=== PATIENT | female | born 1940 | race Caucasian/White ===

== ENCOUNTER → 2022-01-21 09:14 | Outpatient (CLI) | payer MEDICARE, OTHER, SELFPAY ==
--- NOTE | 2022-01-21 | DI.MG.S_ITS ---
BILATERAL DIGITAL DIAGNOSTIC MAMMOGRAM 3D/2D: 01/21/2022 CLINICAL: Mastodynia. Comparison is made to exams dated: 02/12/2021 mammogram, 12/21/2019 mammogram, and 08/04/2018 mammogram - [facility]. The tissue of both breasts is predominantly fatty. No significant masses, calcifications, or other findings are seen in either breast. Specifically, no finding to explain the patient's left breast discomfort. Mammograms are otherwise stable. IMPRESSION: NEGATIVE There is no abnormality seen in the left breast to correspond with the pain at 3 o'clock. There is no mammographic evidence of malignancy. Return to annual mammogram screening schedule is recommended. Findings and recommendations were conveyed to the patient at time of exam. This exam was interpreted at Station ID: [id number]. NOTE: For mammograms, a report in lay terms will be sent to the patient. Approximately 15% of breast malignancies will not be visualized mammographically. In the management of a palpable breast mass, a negative mammogram must not discourage biopsy of a clinically suspicious lesion. Electronically Signed By: Robina terry/:01/21/2022 09:55:56 letter sent: Normal Exam ACR BI-RADS Category 1: Negative [id number]
== END ==
PROVIDERS: PCP Family Medicine; Referring Provider Family Medicine; Visit Provider Family Medicine
DX: N64.4 Mastodynia (principal)
CPT/HCPCS: 77066; G0279

== ENCOUNTER → 2024-08-09 11:49 | Outpatient (CLI) | payer MEDICARE, OTHER, SELFPAY ==
[2024-08-09 14:46] LABS: Clostridium Difficile Tox PCR Negative for C. diff (Negative)
[2024-08-13 00:06] LABS: Calprotectin, Stool 106 ug/g (0-120)
== END ==
PROVIDERS: PCP Family Medicine; Referring Provider Internal Medicine Gastroenterology; Visit Provider Internal Medicine Gastroenterology
DX: R19.7 Diarrhea, unspecified (principal)
CPT/HCPCS: 83993; 87045; 87177; 87329; 87493

== ENCOUNTER 2024-09-04 07:17 | Day surgery (SDC) | payer MEDICARE, OTHER, SELFPAY ==
--- NOTE | 2024-09-04 | PATH_ITS ---
[facility] Accession Number: [id number] No. of containers..03 Tissue . 01 Material submitted: . PART A: colon - RANDOM COLON PART B: colon - ASCENDING POLYP X 2 PART C: colon - DESCENDING POLYP . 01 Diagnosis: A. RANDOM COLON, BIOPSY: Colonic mucosa with no diagnostic abnormality. Negative for active, chronic, and microscopic colitis. Negative for dysplasia and malignancy. . B. ASCENDING COLON, POLYP X2: Tubular adenomas. . C. DESCENDING COLON, POLYP: Tubular adenoma. [facility] 09/06/2024 1508 Local . 01 Electronically signed: . Loren Clark MD, Pathologist NPI- [id number] . 01 Gross description: . Part A: RANDOM COLON: Received in formalin are 2 fragment(s) of hatch, soft tissue measuring 0.2 x 0.1 x 0.1 cm to 0.4 x 0.2 x 0.2 cm submitted entirely in 1 cassette(s) Part B: ASCENDING POLYP X 2: Received in formalin are 2 fragment(s) of hatch, soft tissue measuring 0.2 x 0.2 x 0.2 cm to 0.3 x 0.3 x 0.2 cm submitted entirely in 1 cassette(s) Part C: DESCENDING POLYP : Received in formalin is 1 fragment(s) of hatch, soft tissue measuring 0.3 x 0.3 x 0.2 cm submitted entirely in 1 cassette(s) /[facility]GA 09/05/2024 0132 Local . 01 Pathologist provided ICD-10: D12.2 . 01 CPT . 909912, 221149, 359385 Specimen Comment: A courtesy copy of this report has been sent to [phone] Performed at: [address] [place] [address] [address], [place], [place] [id number] MD Jude Shea MD Phone: [phone]
[2024-09-04 07:41] VITALS: BP 158/84; PULSE 98; RESP 16; TEMP 36.7; O2SAT 99
--- NOTE | 2024-09-04 07:55 | PM.HP.1 ---
History of Present Illness History of Present Illness Date Patient Seen: 09/04/24 Time Patient Seen: 07:55 [place] [facility] [place]arrative: 84-year-old here for colonoscopy. Diarrhea persists in the workup thus far is negative. I reviewed my office note no other additional changes. She is off her Eliquis since last Wednesday 3 days ago. [facility] Medical History Diarrhea Liver cyst GERD (gastroesophageal reflux disease) Social History Smoking Status: Never smoker alcohol intake: current Meds Home Medications and Allergies Home Medications Medication Instructions Recorded Confirmed Type apixaban 5 mg tablet (Eliquis) 5 mg PO BID 09/04/24 09/04/24 History metoprolol succinate 25 mg 25 mg PO DAILY 09/04/24 09/04/24 History tablet,extended release 24 hr omeprazole 40 mg capsule,delayed 40 mg PO DAILY 09/04/24 09/04/24 History release prednisone 5 mg tablet 5 - 10 mg PO QAM 09/04/24 09/04/24 History simvastatin 20 mg tablet 20 mg PO ONCE PM 09/04/24 09/04/24 History Allergies Allergy/AdvReac Type Severity Reaction Status Date / Time epinephrine AdvReac rapid Verified 09/04/24 07:35 heart beat Review of Systems Review of Systems ROS: Yes All systems reviewed with the patient and are negative except as otherwise documented Exam Vital Signs (past 8 hours): - 09/04/24 07:41 Temperature 98.0 F Pulse Rate 98 H Respiratory Rate 16 Blood Pressure 158/84 H Pulse Oximetry 99 Oxygen Delivery Method Room Air Oxygen Delivery Method Room Air Const General: cooperative HENMT Head: normal to inspection Eyes General: appearance normal, both eyes and all related structures Neck Neck: normal visual inspection Chest Chest: normal inspection of the chest Resp Effort & Inspection: normal respiratory effort Cardio Rate: regular rate GI Inspection: normal to inspection Skin General: no rashes or lesions noted Neuro General: patient alert and patient awake Extrem General: normal to inspection and no pedal edema Psych Appearance: grossly normal Assessment & Plan Assessment & Plan narrative: 84-year-old female with diarrhea. Colonoscopy is pursued today. Time-Based Coding :: [TOTAL MINUTES] spent with patient and on the chart (including review of chart, obtaining history, exam, reviewing outside data, placing orders, documenting exam and treatment plan, and counseling patient) on [DATE].
--- NOTE | 2024-09-04 07:56 | PM.PREOP ---
Pre-operative Note Interval Note History & Physical reviewed/Exam performed by Physician: Yes Changes to H&P: No ASA Class (for procedural sedation): III
--- NOTE | 2024-09-04 08:56 | P.OP.COLON_ITS ---
Operative Date/Time/Diagnoses Date of procedure: 09/04/24 Time of procedure: 08:57 Pre-op diagnosis: Diarrhea and incidental history of colon polyps Post-op diagnosis: same Procedure & Clinicians Study performed: Colonoscopy with cold forceps polypectomy, hot snare polypectomy, and random biopsies Same procedure as scheduled: Yes Indications: Diarrhea and incidental history of colon polyps Surgeon: Richy Hurtado Procedure Notes SCOAP/Timeout: Done Procedure in detail: After the risks and benefits were explained, written and verbal informed consent was obtained. The patient was brought into the procedure room and placed into the left lateral decubitus position. Please see anesthesia notes for sedation details. Digital rectal examination was accomplished. The scope was introduced into the patient and advanced under direct visualization to the cecum as identified by the appendiceal orifice and ileocecal valve. The scope was slowly withdrawn to carefully examine the mucosa for any defects or lesions. Co mprehensive imaging was accomplished throughout the rectum including the dentate line. The colon was decompressed, the scope was then removed from the patient who tolerated the procedure well. Pediatric colonoscope Bowel prep adequate Scope withdrawal time: 18 minutes Sedation minutes: 22 Complications: none Impression: The patient had grade 2 internal hemorrhoids on digital and endoscopic examination. There was moderate diverticulosis all throughout the sigmoid. In the ascending colon there were 2 diminutive polyps removed with cold forceps and 1 8 mm pedunculated polyp removed with hot snare. In the descending colon there was a diminutive 2-3 mm polyp removed with cold forceps. No additional significant mucosal pathology was appreciated throughout. Random colon biopsies were taken to exclude microscopic colitis. The terminal ileum was interrogated and appeared visually normal. Endoscopic diagnosis 1. Colon polyps 2. Diverticulosis 3. Grade 2 hemorrhoids Post-procedure Plan for aftercare: 1. Await histology 2. Okay to resume Eliquis starting tomorrow 3. Titrate [id number] fiber to the desired stool consistency and frequency. Disposition: PACU
[2024-09-04 09:00] VITALS: BP 101/65; PULSE 80; RESP 24; TEMP 36; O2SAT 93
[2024-09-04 09:05] VITALS: BP 101/69; PULSE 77; RESP 19; O2SAT 93
[2024-09-04 09:11] VITALS: BP 102/63; PULSE 75; RESP 20; O2SAT 95
[2024-09-04 09:22] VITALS: BP 104/66; PULSE 76; RESP 25; TEMP 37; O2SAT 95
== END 2024-09-04 09:30 | disposition home or self-care (01) ==
PROVIDERS: PCP Family Medicine; Referring Provider Internal Medicine Gastroenterology; Visit Provider Internal Medicine Gastroenterology
PROC: 0DJD8ZZ Inspection of Lower Intestinal Tract, Via Natural or Artificial Opening Endoscopic (ICD-10-PCS; CPT 45378; principal; 2024-09-04 08:30)
DX: R19.7 Diarrhea, unspecified (principal); Z86.0100 Personal history of colon polyps, unspecified; K57.30 Diverticulosis of large intestine without perforation or abscess without bleeding; K64.1 Second degree hemorrhoids; D12.2 Benign neoplasm of ascending colon; D12.4 Benign neoplasm of descending colon; S00.81XA Abrasion of other part of head, initial encounter; R55 Syncope and collapse; W18.30XA Fall on same level, unspecified, initial encounter; Z79.01 Long term (current) use of anticoagulants; R07.9 Chest pain, unspecified; M79.621 Pain in right upper arm
CPT/HCPCS: 45385; 45380; 36415; 70450; 71045; 72125; 73060; 80053; 82550; 83690; 83880; 84484; 85025; 93005; 99284; J2405; J2704

== ENCOUNTER 2024-09-04 09:47 | Emergency (ER) | payer MEDICARE, OTHER, SELFPAY ==
--- NOTE | 2024-09-04 | DI.RAD.S_ITS ---
PROCEDURE: XR HUMERUS RT 2V INDICATIONS: PAIN TECHNIQUE: 2 views of the humerus were acquired. COMPARISON: None. FINDINGS: Bones: No fractures or dislocations. No suspicious bony lesions. Soft tissues: No suspicious soft tissue calcifications. IMPRESSION: No acute bony abnormality. Dictated by: Vic Jameson M.D. on 09/04/2024 at 10:39 Approved by: Vic Jameson M.D. on 09/04/2024 at 10:40
--- NOTE | 2024-09-04 09:50 | DI.CT.S_ITS ---
PROCEDURE: CT HEAD/BRAIN WO CON INDICATIONS: fall vs syncope hit head TECHNIQUE: Noncontrast 4.5 mm thick angled axial sections acquired from the foramen magnum to the vertex, with coronal and sagittal reformats. For radiation dose reduction, the following was used: automated exposure control, adjustment of mA and/or kV according to patient size. COMPARISON: [facility], CT, CT CERVICAL SPINE WO CON, 09/04/2024, 10:10. FINDINGS: Image quality: Diagnostic. CSF spaces: Basal cisterns are patent. No extra-axial fluid collections. The ventricles are symmetric in size and shape. Brain: No intracranial bleeds or masses. There is cerebral volume loss for age, with resultant ventricular and sulcal prominence. There are periventricular and deep white matter chronic small vessel ischemic changes. There is intracranial internal carotid artery atherosclerosis. Skull and face: Soft tissue thickening can be seen involving the right cheek. No associated fracture is seen within this region. Left-sided craniotomy change is seen. Calvarium and visualized facial bones appear intact, without suspicious lesions. Sinuses: Visualized sinuses and mastoids are clear. IMPRESSION: Right cheek soft tissue swelling. No associated fracture. No acute intracranial hemorrhage is seen. No acute intracranial process is seen. Prior left-sided craniotomy change. Dictated by: Saw Brito M.D. on 09/04/2024 at 9:45 Approved by: Saw Brito M.D. on 09/04/2024 at 9:46
--- NOTE | 2024-09-04 09:50 | DI.CT.S_ITS ---
PROCEDURE: CT CERVICAL SPINE WO CON INDICATIONS: fall vs syncope hit head TECHNIQUE: Noncontrast 3 mm thick sections acquired from the skull base to the T4 level. Sagittal and coronal reformats were then constructed. For radiation dose reduction, the following was used: automated exposure control, adjustment of mA and/or kV according to patient size. COMPARISON: [facility], CR, XR HUMERUS RT 2V, 09/04/2024, 10:19. [facility], CR, XR CHEST 1V, 09/04/2024, 10:19. [facility], CT, CT HEAD/BRAIN WO CON, 09/04/2024, 10:10. FINDINGS: Image quality: This examination is somewhat limited by quantum mottle artifact. Bones: No fractures or dislocations. Visualized superior ribs are intact. Focal degenerative change is seen involving the C1-C2 interface anteriorly. There is moderate disc space narrowing seen at C4-C5, with at least moderate disc space narrowing seen at C5-C6, C6-C7, and C7-T1. Posteriorly directed did endplate osteophytes can be seen inferiorly. Soft tissues: Prevertebral soft tissues are normal in thickness. No paravertebral hematomas. No apical pneumothoraces. IMPRESSION: No displaced fracture or traumatic subluxation. Cervical spine degenerative changes are seen, which are worst inferiorly point Dictated by: Saw Brito M.D. on 09/04/2024 at 9:46 Approved by: Saw Briot M.D. on 09/04/2024 at 9:48
--- NOTE | 2024-09-04 09:50 | DI.RAD.S_ITS ---
PROCEDURE: XR CHEST 1V INDICATIONS: syncope vs fall TECHNIQUE: One view of the chest was acquired. COMPARISON: None. FINDINGS: Surgical changes and devices: None. Lungs and pleura: Lungs are clear. No pleural effusions or pneumothorax. Mediastinum: Mediastinal contours appear normal. Heart size is normal. Bones and chest wall: No suspicious bony lesions. Overlying soft tissues appear unremarkable. IMPRESSION: No acute cardiopulmonary abnormality is seen. Dictated by: Vic Jameson M.D. on 09/04/2024 at 10:39 Approved by: Vic Jameson M.D. on 09/04/2024 at 10:39
[2024-09-04 09:51] VITALS: BP 138/69; PULSE 71; RESP 12; TEMP 36.1; O2SAT 99; BMI 28.5
--- NOTE | 2024-09-04 09:51 | ED.GENADULT ---
HPI - General Adult General Chief complaint: Syncope Stated complaint: rapid response Time Seen by Provider: 09/04/24 09:50 History of Present Illness HPI narrative: 84-year-old female history of atrial fibrillation on Eliquis, metoprolol with dyslipidemia who presents after having a colonoscopy earlier today for persistent diarrhea. Patient has been thought that she had forgotten her wedding ring so they had returned after going out to the parking area back into the house and were ambulating in the [place] when patient either tripped or passed out. She states she thinks she tripped but she does not remember actually tripping or falling or hitting her head. She does hit her head she has a small abrasion. Denies any headache, denies any neck pain, denies any midline back pain does have some right chest pain and some right pain with the movement of her arm particularly in the humerus itself. Patient denies any other injuries. Denies shortness of breath. No nausea or vomiting. No GI or urinary symptoms other than she recently had a colonoscopy and had to go through the prep last night. Denies any black or bloody stools. Patient denies any urinary symptoms. No new swelling in extremities. Patient states that she had her Eliquis held for a day or 2 but did take her oral metoprolol this morning. She has not had anything to eat or drink since her colonoscopy. No tobacco, occasional alcohol, no recreational drugs. Related Data Home Medications Medication Instructions Recorded Confirmed apixaban 5 mg tablet (Eliquis) 5 mg PO BID 09/04/24 09/04/24 metoprolol succinate 25 mg 25 mg PO DAILY 09/04/24 09/04/24 tablet,extended release 24 hr omeprazole 40 mg capsule,delayed 40 mg PO DAILY 09/04/24 09/04/24 release prednisone 5 mg tablet 5 - 10 mg PO QAM 09/04/24 09/04/24 simvastatin 20 mg tablet 20 mg PO ONCE PM 09/04/24 09/04/24 Previous Rx's Medication Instructions Recorded hydrocodone 5 mg-acetaminophen 325 1 tab PO Q6H PRN pain #10 tabs 09/04/24 mg tablet Allergies Allergy/AdvReac Type Severity Reaction Status Date / Time epinephrine AdvReac rapid Verified 09/04/24 09:55 heart beat Review of Systems Review of Systems ROS Unobtainable: All systems reviewed & are unremarkable except as noted in HPI and below Patient History Medical History Diarrhea Liver cyst GERD (gastroesophageal reflux disease) Social History Smoking Status: Never smoker alcohol intake: current Smoking Status: Never smoker alcohol intake frequency: a few times a week Substance Use Type: does not use Exam Narrative Exam Narrative: GEN: Patient appears in mild distress. HEAD: Patient has small amount ecchymosis right cheek, no raccoon/Vu sign. NECK: Nontender, painless range of motion, trachea midline Negative Nexus criteria, no midline line tenderness, distracting injury, altered mental status, neuro deficit, recent EtOH. EYES: PERRLA, EOMI ENT: External inspection normal, trachea is midline, TM's are normal no hemotypanum, Nares are clear, no septal hematoma, no dental or oral injury, airway is normal and with normal occlusion, No bony tenderness RESP: Chest some mild tenderness on the right lateral/posterior rib. Has symmetric movement, no ecchymosis, breath sounds are normal no crackles, wheezes or rales CVS: Heart sounds are normal, no murmur noted, No JVD. ABG/GI: Nontender, soft, normal bowel sounds, no distention, no organomegaly, pelvic rock is negative NEURO: Oriented AOx3, neuro is grossly intact, sensation and motor is normal all 4 extremities moving, cranial nerves II through XII are intact, GCS is 15 PSYCH: Normal mood and affect SKIN: Intact, warm and dry, no crepitus and without decubitus BACK: No CVA tenderness, no vertebral tenderness, no step-off's, no crepitus EXT: Atraumatic, patient does have complaints of right humeral pain nontender over the shoulder, humerus, elbow forearm and hand. Full range of motion. No ecchymosis or skin changes. Hips are nontender, no pedal edema, normal color and temperature, normal range of motion of extremities with normal tendon exam, 2+ pulses in all four extremities Initial Vital Signs Initial Vital Signs: Vital Signs Temperature 96.9 F L 09/04/24 09:51 Pulse Rate 71 09/04/24 09:51 Respiratory Rate 12 09/04/24 09:51 Blood Pressure 138/69 09/04/24 09:51 Pulse Oximetry 99 09/04/24 09:51 Oxygen Delivery Method Room Air 09/04/24 09:51 Course Orders Ordered: Discontinued Medications Hydrocodone Bitart/Acetaminophen (Hydrocodone/Acet 5/325 Tablet) 1 tab PO NOW ONE Stop: 09/04/24 12:24 Last Admin: 09/04/24 12:42 Dose: 1 tab Documented By: ES Vital Signs Vital signs: Vital Signs - 8 hr 09/04/24 09:51 09/04/24 11:24 09/04/24 11:24 Temperature 96.9 F L Pulse Rate 71 70 Respiratory Rate 12 Blood Pressure 138/69 131/68 Pulse Oximetry 99 95 Oxygen Delivery Method Room Air Medical Decision Making Lab Data 09/04/24 09:24 09/04/24 09:50 Labs: Lab Results 09/04/24 09/04/24 Range/Units 09:24 09:50 WBC 6.3 (4.5-11.0) X10^3/uL RBC 4.98 (4.0-5.2) X10^6/uL Hgb 14.8 (12.0-16.0) g/dL Hct 44.3 (36-46) % MCV 88.8 (80-100) fL MCH 29.6 (26-34) PG MCHC 33.3 (30-36) % RDW 13.9 (11.6-14.8) % Plt Count 244 (150-400) X10^3/uL Neut % (Auto) 71.2 (50-75) % Lymph % (Auto) 19.4 L (25-40) % Sunflower % (Auto) 8.2 (3-14) % Eos % (Auto) 0.7 L (2-4) % Baso % (Auto) 0.5 (0-2) % Neut # (Auto) 4500 (3055-2844) /uL Lymph # (Auto) 1200 (7318-3468) /uL Sunflower # (Auto) 500 (0-900) /uL Eos # (Auto) 0 (0-450) /uL Baso # (Auto) 0 (0-100) /uL Sodium 136 L (137-145) mmol/L Potassium 3.9 (3.4-5.1) mmol/L Chloride 101 (98-107) mmol/L Carbon Dioxide 26 (22-32) mmol/L BUN 9 (7-17) mg/dL Creatinine 0.63 (0.52-1.04) mg/dL Estimated GFR > 60 (>60) mL/min BUN/Creatinine Ratio 14.3 (6-22) Glucose 114 H (80-110) mg/dL Calcium 9.8 (8.4-10.2) mg/dL Total Bilirubin 0.5 (0.2-1.3) mg/dL AST 26 (14-36) IU/L ALT 23 (<35) IU/L Alkaline Phosphatase 85 (38-126) U/L Total Creatine Kinase 48 (30-135) U/L Troponin I < 0.012 (0.01-0.034) ng/mL NT-Pro-B Natriuret Pep 80 (<450) pg/mL Total Protein 7.1 (6.3-8.2) g/dL Albumin 4.5 (3.5-5.0) g/dL Globulin 2.6 (1.7-4.1) g/dL Albumin/Globulin Ratio 1.7 (1.0-2.8) Lipase 113 (23-300) U/L ECG Data Attestation: I personally reviewed and interpreted this ECG as follows: Interpretation: Sinus rhythm rate of 70 ID 146 QRS 84 QTC of [address] elevation or depression. MDM Narrative Medical decision making narrative: 84-year-old female who had fall versus syncopal episode where she did strike her head. Patient had colonoscopy earlier today they had forgotten or lost her wedding ring and had returned to the hospital and were ambulating to find it when patient either tripped or passed out. She did strike her head she is on Eliquis. Labs show white count of 6.3 hemoglobin 14.8 platelets of 244. Chemistry shows sodium of 136 otherwise normal electrolytes, BUN 9 with a creatinine of 0.63 glucose of 114 LFTs are negative troponins less than 0.012 with a BNP of 80. EKG shows sinus rhythm no acute changes. Head CT is negative for acute change, other than soft tissue thickening of the right cheek. No fracture at this area. Left-sided craniotomy changes seen. CT C-spine shows no acute change, patient does have degenerative changes throughout the cervical spine. Chest x-ray shows no acute change. Humerus x-ray is negative. On exam patient has a little bit tenderness but no discrete localized tenderness she is good range of motion of the shoulder but does complain of some arm pain. No discrete bony tenderness there as well. Discussed with patient if she was quite uncomfortable can provide a sling. We will send a short course of pain medication as I suspect she might have rib contusion versus fracture. Was provided incentive spirometer and teaching. Suspect syncope although patient does not recall if she caught her toe or not. She ambulated safely here in the department. Discharge Plan Departure Patient Disposition: Home Clinical Impression: Syncope Instructions: DI for Rib Fracture Activity Restrictions/Additional Instructions: I hope you continue to feel improved. You may have a cracked rib, there was no obvious fracture on your imaging. A prescription for pain medicine was sent to [facility] in [place]. This medication can make you sleepy do not drive, perform hazardous activities or make any major decisions while taking it. This medication will make you constipated please take a stool softener such as Colace once to twice daily until stools are soft and regular. Please return if you have any recurrent symptoms, falls or lightheadedness, new chest pain or shortness of breath, persistent vomiting, new swelling of extremities, black or bloody stools or other new or concerning changes. Prescriptions: New hydrocodone-acetaminophen 5-325 mg tablet 1 tab PO Q6H PRN (Reason: pain) Qty: 10 0RF No Action prednisone 5 mg tablet 5 - 10 mg PO QAM omeprazole 40 mg capsule,delayed release(DR/EC) 40 mg PO DAILY simvastatin 20 mg tablet 20 mg PO ONCE PM metoprolol succinate 25 mg tablet extended release 24 hr 25 mg PO DAILY Eliquis 5 mg tablet 5 mg PO BID Referrals: Gabriel Nichols MD [Primary Care Provider] - Stand Alone Forms: Patient Portal/API/Survey
--- NOTE | 2024-09-04 09:56 | EKG_ITS ---
[address] [address] Test Date: 2024-09-04 Pat Name: Salina Beltran Department: Room: Gender: Female [employer]: JULIA : 1940 Requested By: Order Number: [id number] Reading MD: Faustino Flynn MD Measurements Intervals [place] Rate: 70 P: -17 AK: 146 QRS: 56 QRSD: 84 T: 38 QT: 400 QTc: 432 Interpretive Statements Normal sinus rhythm Electronically Signed On 09-04-2024 11:32:21 PST by Faustino Flynn MD
[2024-09-04 10:56] LABS: Alanine Aminotransferase 23 IU/L (<35); Albumin 4.5 g/dL (3.5-5.0); Albumin Globulin Ratio 1.7 (1.0-2.8); Alkaline Phosphatase 85 U/L (38-126); Aspartate Aminotransferase 26 IU/L (14-36); BUN Creatinine Ratio 14.3 (6-22); Bilirubin Total 0.5 mg/dL (0.2-1.3); Blood Urea Nitrogen 9 mg/dL (7-17); Calcium 9.8 mg/dL (8.4-10.2); Carbon Dioxide 26 mmol/L (22-32); Chloride 101 mmol/L (98-107); Creatine Kinase 48 U/L (30-135); Estimated Glomerular Filt Rate > 60 mL/min (>60); Globulin 2.6 g/dL (1.7-4.1); Glucose 114 mg/dL (80-110); HEMOLYSIS < 15 (0-50); Lipase 113 U/L (23-300); Potassium 3.9 mmol/L (3.4-5.1); Sodium 136 mmol/L (137-145); Total Protein 7.1 g/dL (6.3-8.2)
[2024-09-04 11:08] LABS: NT-proBNP (BNP-Adult 18+) 80 pg/mL (<450); Troponin I < 0.012 ng/mL (0.01-0.034)
[2024-09-04 11:11] LABS: Add Manual Diff / Slide Review NO; Basophils Absolute Auto 0 /uL (0-100); Basophils Percent Auto 0.5 % (0-2); Eosinophils Absolute Auto 0 /uL (0-450); Eosinophils Percent Auto 0.7 % (2-4); Hematocrit 44.3 % (36-46); Hemoglobin 14.8 g/dL (12.0-16.0); Lymphocytes Absolute Auto 1200 /uL (1100-4500); Lymphocytes Percent Auto 19.4 % (25-40); Mean Corpuscular HGB Conc 33.3 % (30-36); Mean Corpuscular Hemoglobin 29.6 PG (26-34); Mean Corpuscular Volume 88.8 fL (80-100); Monocytes Absolute Auto 500 /uL (0-900); Monocytes Percent Auto 8.2 % (3-14); Neutrophils Absolute Auto 4500 /uL (1500-7000); Neutrophils Percent Auto 71.2 % (50-75); Platelet Count 244 X10^3/uL (150-400); Red Blood Cell Count 4.98 X10^6/uL (4.0-5.2); Red Cell Distribution Width 13.9 % (11.6-14.8); White Blood Cell Count 6.3 X10^3/uL (4.5-11.0)
[2024-09-04 11:24] VITALS: BP 131/68; PULSE 70; O2SAT 95
[2024-09-04 11:30] VITALS: BP 132/71; PULSE 74; O2SAT 97
--- NOTE | 2024-09-04 11:37 | PC.NURSE ---
Patient had a colonoscopy this morning and was discharged home. She returned to the hospital with her to collect her belongings and tripped in the hallway, landing on her face. She arrives in the ER with swelling and bruising on her right quaker. She is unsure if she lost consciousness; syncope workup initiated.
[2024-09-04 12:00] VITALS: BP 144/66; PULSE 72; O2SAT 94
[2024-09-04] MEDS: HYDROCODONE/ACET 5/325 TABLET 1 TAB PO (12:42)
[2024-09-04 12:58] VITALS: BP 144/66; PULSE 63; RESP 18; TEMP 36.6; O2SAT 98
== END 2024-09-04 12:59 | disposition home or self-care (01) ==
PROVIDERS: Emergency Provider Emergency Medicine; PCP Family Medicine
DX: S00.81XA Abrasion of other part of head, initial encounter (principal); R55 Syncope and collapse; R07.9 Chest pain, unspecified; M79.621 Pain in right upper arm; W18.30XA Fall on same level, unspecified, initial encounter; Z79.01 Long term (current) use of anticoagulants
CPT/HCPCS: 36415; 70450; 71045; 72125; 73060; 80053; 82550; 83690; 83880; 84484; 85025; 93005